=== PATIENT | female | born 1970 | race Caucasian/White ===

== ENCOUNTER 2019-05-09 09:15 | Emergency (ER) | payer OTHER, SELFPAY ==
[2019-05-09 09:29] VITALS: BP 166/93; PULSE 67; RESP 18; TEMP 36.8; O2SAT 100
[2019-05-09] MEDS: IBUPROFEN 400 MG TABLET PO (10:11)
[2019-05-09] MEDS: ACETAMINOPHEN 325 MG TABLET 975 MG PO (10:11)
--- NOTE | 2019-05-09 10:14 | ED.EAR ---
HPI - Ear Problem General Chief complaint: Ear Stated complaint: lft ear ache and severe pressure, spreading Time Seen by Provider: 05/09/19 10:13 Source: patient and family (daughter at bedside.) Mode of arrival: ambulatory Limitations: no limitations History of Present Illness HPI Narrative: This is a 49-year-old who comes in with complaint of left ear pain and swelling. Patient states that she had got water in her ear after a bath on Tuesday, she noticed a little bit of fullness. She did try to use a Q-tip to get the water out. Afterwards she started noticing a pain in her ear. She was seen on May 06 by brooklyn Berry who told her look like she had an inner ear infection and started her on cefdinir. She has taken that twice daily since then. Patient was then followed up at the hospital at [facility] and started on neomycin ear drops and told she had an otitis externa but to continue oral antibiotics. She has continued to have increasing swelling. She has had 3 doses of the ear drops. She feels like she is having increasing pressure in her ear. She denies fevers but denies complains of pain at the ear as well little bit radiating around and some slight sore throat. She has not had any swelling of her throat or neck. She is not having any hoarseness. She does not have any issues with turning her neck. She has had a little bit of loose stool which she relates to the antibiotics but no nausea or vomiting. She has a history of hypertension. She states she is allergic to amoxicillin. Related Data Home Medications Medication Instructions Recorded Confirmed bupropion HCl XL 300 mg 24 hr 300 mg PO QAM 05/06/19 05/06/19 tablet, extended release hydrochlorothiazide 25 mg tablet 25 mg PO DAILY 05/06/19 05/06/19 propranolol PO 05/06/19 05/06/19 Previous Rx's Medication Instructions Recorded cefdinir 300 mg capsule 300 mg PO BID 10 Days #20 cap 05/06/19 fluconazole 150 mg tablet 150 mg PO ONCE #1 tab 05/06/19 ciprofloxacin HCl 500 mg PO BID #20 tab 05/09/19 ciprofloxacin-dexamethasone 4 drop EAR-LEFT BID #7.5 ml 05/09/19 [Ciprodex] tramadol [Ultram] 50 mg PO Q6H PRN #5 tab 05/09/19 Allergies Allergy/AdvReac Type Severity Reaction Status Date / Time amoxicillin Allergy Rash Verified 05/06/19 10:22 Review of Systems Review of Systems ROS Unobtainable: All systems reviewed & are unremarkable except as noted in HPI and below ENT Ears, Nose, Mouth, and Throat: Reports as per HPI [facility] Medical History (Updated 05/09/19 @ 10:55 by Aubree Gabriel DO) Hypertension (Chronic) Surgical History (Updated 05/09/19 @ 10:48 by Aubree Gabriel DO) Hx of cholecystectomy (Chronic) Social History Smoking Status: Never smoker Social History Smoking Status: Never smoker Exam Narrative Exam Narrative: GEN: well nourished, well appearing female, alert and oriented x 3, patient appears to be in mild distress. HEENT: Atraumatic, pupils are equal round reactive to light, extraocular movements are intact, nares are clear, TM on right is intact, with no erythema or swelling, on left patient's left ear is swollen, it is moderately tender to touch. The pain as well as canal or swollen. I am unable to visualize the TM. There is no active drainage. Patient has some mild soft tissue swelling just adjacent to the ear and just below. I do not appreciate any swelling of the throat or neck. Throat is clear without any exudates, erythema, tonsillar enlargement or uvular deviation, patient has full range of motion. No muffled or hot potato voice. No swelling underneath her chin. HEART: Regular rate and rhythm without murmur, clicks, rubs. LUNGS:Lungs clear to auscultation, no wheezes, rales, crackles, chest moves symmetrically ABD:bowel sounds normal, soft, non-tender, no guarding, rebound, rigidity, no masses noted, no hepatosplenomegaly MSCL: Non-tender, no muscle atrophy, muscles strength 5/5 upper and lower extremities, full range of motion, normal gait NEURO:CN 2-12 intact, sensation normal SKIN: no erythema, no lesions, fluctuence of neck or face. Initial Vital Signs Initial Vital Signs: Vital Signs Temperature 98.2 F 05/09/19 09:29 Pulse Rate 67 05/09/19 09:29 Respiratory Rate 18 05/09/19 09:29 Blood Pressure 166/93 H 05/09/19 09:29 Pulse Oximetry 100 05/09/19 09:29 Course Orders Ordered: Discontinued Medications Acetaminophen (Tylenol) 975 mg PO NOW ONE Stop: 05/09/19 09:33 Last Admin: 05/09/19 10:11 Dose: 975 mg Ibuprofen (Advil) 400 mg PO NOW ONE Stop: 05/09/19 09:33 Last Admin: 05/09/19 10:11 Dose: 400 mg Lidocaine HCl (Xylocaine 1%) 10 ml INJ NOW ONE Stop: 05/09/19 11:02 Last Admin: 05/09/19 11:20 Dose: Not Given Lidocaine HCl (Xylocaine 1% (Pf)) 2 ml INJ NOW ONE Stop: 05/09/19 11:21 Last Admin: 05/09/19 11:41 Dose: 2 ml Vital Signs - 8 hr 05/09/19 11:20 Pulse Rate 55 L Respiratory Rate 17 Blood Pressure [Right Arm] 135/76 Pulse Oximetry 99 Medical Decision Making [facility] Narrative Medical decision making narrative: I discussed with patient she has been on oral and topical antibiotics but suggest a stronger antibiotic. S patient has had multiple doses I would change to oral as well as her top antibiotics. Would also place an ear wick on the left. We did discuss some possibly getting further imaging but patient was comfortable with adjusting her medications if she is not showing major improvement in 24 hours or worsening or having fevers, vomiting or other new changes that were discussed patient should return she may need further workup. Discharge Plan Departure Patient Disposition: Home Clinical Impression: Otitis externa Discharge Date/Time: 05/09/19 12:22 Interventions: ED Discharge Assessment Last Done: 05/09/19 12:19 Instructions: DI for Otitis Externa Activity Restrictions/Additional Instructions: Follow up with ENT in the next 48-72 hours if not improving. Return to the ER if worsening. Stop cefdinir and her current antibiotic ear drops. Start ciprofloxacin 500 mg twice daily along with Ciprodex otic drops use 4 drops into the affected ear twice daily for 10 days. Your prescription was sent to [facility]. Leave ear wick in place, if it falls out do not try to replace. You may take Tylenol up to a 1000 mg every 8 hours and/or ibuprofen up to 800 mg every 8 hours. You may take Ultram 1 tablet every 6 hours as needed for pain. You may take this medication with Tylenol and/or ibuprofen. Return to the emergency department for fevers greater than 100.4 F, rapidly worsening symptoms increasing swelling of the face, neck, muffled voice or changes in her voice, headaches, persistent vomiting or other new or concerning symptoms. Prescriptions: New ciprofloxacin HCl 500 mg tablet 500 mg PO BID Qty: 20 RF: 0 Ciprodex 0.3-0.1 % drops,suspension 4 drop EAR-LEFT BID Qty: 7.5 RF: 0 tramadol [Ultram] 50 mg tablet 50 mg PO Q6H PRN (Reason: pain) Qty: 5 RF: 0 No Action hydrochlorothiazide 25 mg tablet 25 mg PO DAILY RF: 0 bupropion HCl [Wellbutrin XL] 300 mg tablet extended release 24 hr 300 mg PO QAM RF: 0 propranolol PO RF: 0 cefdinir 300 mg capsule 300 mg PO BID 10 Days Qty: 20 RF: 0 fluconazole 150 mg tablet 150 mg PO ONCE Qty: 1 RF: 0 Referrals: Jeffry Penny MD [Physician] - ED Cosign/Signout Cosign ED Attending Cosignature Attestation: I was immediately available in the department for consultation. This documentation has been reviewed and I agree with assessment and plan. Supervised by Aubree Gabriel DO
[2019-05-09 11:20] VITALS: BP 135/76; PULSE 55; RESP 17; O2SAT 99
[2019-05-09] MEDS: LIDOCAINE 1% (PF) INJ 2 ML INJ (11:41)
== END 2019-05-09 12:22 | disposition home or self-care (01) ==
PROVIDERS: Emergency Provider Emergency Medicine
DX: H60.92 Unspecified otitis externa, left ear (principal)
CPT/HCPCS: 96372; 99282; 99283

== ENCOUNTER 2019-09-04 13:57 | Day surgery (SDC) | payer OTHER, SELFPAY ==
--- NOTE | 2019-09-04 | PATH_ITS ---
[facility] Accession Number: [id number] . 01 Material submitted: . colon - POLYP AT 20CM . 02 Diagnosis: Colon at 20 cm, Polyp: Tubular adenoma. MRV 09/06/2019 1119 Local . 02 Electronically signed: . Willy Pruett MD, PhD, Pathologist NPI- [id number] . 01 Gross description: . POLYP AT 20CM: Received in formalin are 2 fragment(s) of edwards, soft tissue measuring 0.5 x 0.2 x 0.2 cm to 0.3 x 0.2 x 0.2 cm submitted entirely in 1 cassette(s) /QBJ 09/05/2019 0338 Local . 02 Pathologist provided ICD-10: D12.6 . 02 CPT . 349734 Performed at: 01 [facility] [address] [place] [address], [place], [place] [id number] MD Iggy Luis MD Phone: [phone] Performed at: 02 [facility] [address] [place], [place] [id number] MD Constanza Chaves MD Phone: [phone]
[2019-09-04] MEDS: SODIUM CHLORIDE 0.9% 1,000 ML 200 ML IV (14:24)
[2019-09-04 14:29] VITALS: BP 133/98; PULSE 71; RESP 16; TEMP 36.2; O2SAT 99; BMI 34.5
--- NOTE | 2019-09-04 15:20 | PM.HP.1 ---
History of Present Illness History of Present Illness Date Patient Seen: 09/04/19 Time Patient Seen: 15:20 Chief complaint: [id number] Narrative: This is a 49-year-old woman with no history of hematochezia, melena, unexplained weight loss, or unexplained abdominal pain. She does have stool urgency and loose stool right after eating. She is not sure when this started, but she thinks it may have been after her cholecystectomy. She is on magnesium supplement, which she was not aware can cause diarrhea. She is on this for muscle cramps, but does not know that she necessarily had a low magnesium level in the past. She has never tried cholestyramine for post cholecystectomy diarrhea. ROS: Thirteen system review is negative other than as mentioned below and in HPI. PE: GENERAL: Well groomed and cooperative. Appears stated age. Answers questions promptly and appropriately. Vital signs noted. HENT: Normocephalic, atraumatic. Hearing intact. Oral mucosa is pink and moist. EYES: Conjunctiva pink, sclera white, no periorbital swelling. CARDIOVASCULAR: Regular rate. No pedal edema. RESPIRATORY: Non tachypneic, breathing comfortably on room air. GASTROINTESTINAL: Abdomen soft and non-distended GENITALURINARY: No flank tenderness. MUSCULOSKELETAL: Equal tone and mass bilaterally. SKIN: Warm, dry, soft, appropriate color for ethnicity. No other lesions, rashes, or wounds. NEURO: Alert and Oriented X 3. No gross sensory deficits, or cognitive issues. PSYCH: Appropriate affect and mood. Patient History Medical History Bladder prolapse (Acute) Hypertension (Chronic) Surgical History H/O: hysterectomy (Acute) History of abdominoplasty (Acute) History of breast implant (Acute) Hx of cholecystectomy (Chronic) Family & Social History Social History: household members spouse Tobacco & Substance use: Smoking Status Never smoker alcohol intake frequency 0-2 drinks per day Substance Use Type does not use Meds Home Medications and Allergies Home Medications Medication Instructions Recorded Confirmed Type bupropion HCl 300 mg 24 hr tablet, 300 mg PO QAM 05/06/19 09/04/19 History extended release hydrochlorothiazide 25 mg tablet 25 mg PO DAILY 05/06/19 09/04/19 History aspirin [Aspir-Low] 81 mg PO DAILY 09/04/19 09/04/19 History cholecalciferol (vitamin D3) 5,000 unit PO DAILY 09/04/19 09/04/19 History [Vitamin D3] magnesium 30 mg PO DAILY 09/04/19 09/04/19 History gfpscebr-bqc-[id number]-lutein 1 tab PO DAILY 09/04/19 09/04/19 History [Centrum Silver Women] propranolol 120 mg PO DAILY 09/04/19 09/04/19 History Allergies Allergy/AdvReac Type Severity Reaction Status Date / Time metronidazole [From Flagyl] Allergy Intermediate Rash Verified 09/04/19 15:24 amoxicillin Allergy Rash Verified 05/06/19 10:22 Exam Vital Signs (past 8 hours): - 09/04/19 14:29 Temperature 97.1 F L Pulse Rate 71 Respiratory Rate 16 Blood Pressure 133/98 H Pulse Oximetry 99 Oxygen Delivery Method Room Air Assessment & Plan Assessment and plan (1) Fecal urgency: Current visit: Yes Status: Acute (2) Loose stools: Current visit: Yes Status: Acute (3) At average risk for colon cancer: Problem details: Risks and benefits of screening colonoscopy and possible polypectomy were discussed with the patient including risk of bleeding and perforation of the colon. I have discussed with the patient her stool urgency in loose stools after eating. I recommended that she discuss with her primary doctor the possibility of stopping her magnesium, to see if that resolves her symptoms. Additionally she could consider taking cholestyramine under the assumption that she is having post cholecystectomy diarrhea. She will discuss these possibilities with her primary doctor, if nothing significant is found on today's colonoscopy to explain her chronic diarrhea. Plan: Go forward with screening colonoscopy, possible polypectomy Current visit: Yes Status: Acute Quality VTE Deep Vein Thrombosis/Pulmonary Embolism Present on Admission: No
[2019-09-04] MEDS: MIDAZOLAM 5 MG/5 ML VIAL IV (15:57)
--- NOTE | 2019-09-04 15:57 | PM.OP.ENDO ---
Operative Date/Time/Diagnoses Date of procedure: 09/04/19 Time of procedure: 15:57 Pre-op diagnosis: Average risk for colon cancer Post-op diagnosis: other (Single flat polyp in the rectum at 20 cm) Procedure & Clinicians Study performed: Colonoscopy and polypectomy with cold forceps Same procedure as scheduled: Yes Indications: Average risk for colon cancer Surgeon: Missy Sandoval Procedure Notes SCOAP/Timeout: Performed Procedure in detail: The patient was brought to the room and placed in left lateral decubitus position with all bony prominences padded. A time-out was performed and then the patient was given procedural sedation starting with 4 mg of Versed and 100 mcg of fentanyl. An additional 1 mg of Versed and 50 micro g of fentanyl were given during the procedure. Vitals were monitored throughout the procedure and remained stable. Once adequately sedated the procedure was begun. A rectal exam was performed revealing no abnormalities. The colonoscope was then introduced to the rectum and advanced to the cecum in the usual fashion. The cecum was identified by the appendiceal orifice, the mucosal try fold, and the ileocecal valve. The scope was then retracted while rotating side to side and examining each mucosal fold. An 8 mm flat polyp at 20 cm in the rectum was removed with cold forceps. At the conclusion procedure retroflexion was performed and small grade 1 internal hemorrhoids without stigmata of bleeding were seen. The scope was then withdrawn from the rectum the procedure was concluded. The patient tolerated the procedure well was transferred to the PACU in stable condition. Scope withdrawal time: 10 Sedation minutes: 29 Findings: polyp Specimen(s): other (8 mm polyp from the rectum 20 cm from anal verge) Complications: none Impression: Single flat polyp, otherwise normal colon Post-procedure Recommendations: Colonscopy in 10 years (Unless pathology is neoplastic) Follow up: as needed Disposition: PACU
[2019-09-04] MEDS: fentaNYL 250 MCG/5 ML INJ IV (15:59)
[2019-09-04 16:08] VITALS: BP 113/75; PULSE 67; RESP 16; TEMP 36; O2SAT 100
== END 2019-09-04 16:24 | disposition home or self-care (01) ==
PROVIDERS: Family Provider Physician Assistant; PCP Physician Assistant; Visit Provider Surgery
PROC: 0DJD8ZZ Inspection of Lower Intestinal Tract, Via Natural or Artificial Opening Endoscopic (ICD-10-PCS; CPT 45378; principal; 2019-09-04 15:15)
DX: Z12.11 Encounter for screening for malignant neoplasm of colon (principal); I10 Essential (primary) hypertension; D12.6 Benign neoplasm of colon, unspecified
CPT/HCPCS: 45380; 99152; 99153; J2250; J3010